=== PATIENT | male | born 1985 | race Caucasian/White ===

== ENCOUNTER 2017-07-06 13:20 | Emergency (ER) | payer OTHER ==
[~2017-07-06] VITALS: Ht 175.3 cm; Wt 90.7 kg
[2017-07-07] MEDS ORDERED: OFLOXACIN5 ML OP (00:27)
== END 2017-07-07 00:19 | disposition home or self-care (01) ==
LOC: ER 13:20
DX: H72.91 Unspecified perforation of tympanic membrane, right ear (principal)